=== PATIENT | male | born 1985 | race Caucasian/White ===

== ENCOUNTER 2022-03-16 00:47 | Day surgery (SDC) | payer OTHER, SELFPAY ==
[2022-03-13 13:32] VITALS: BMI 29.0
--- NOTE | 2022-03-13 13:45 | PC.NURSE ---
Report to the Outpatient Waiting Room, entrance under the green pavilion located off [facility], at time 0600_on date 03/16/22. OR Time: __0730. IF YOUR SURGERY TIME IS ADJUSTED WE WILL CALL YOU WED. AFTERNOON 03/15/22 - You and your visitor will be asked a series of questions to screen for COVID 19 for your protection. - Only one visitor is allowed at this time. - The patient visitor is requested to leave or wait in car when not with patient. - A mask is required within the hospital. Patients may have clear liquids (water, carbonated beverages, clear teas, apple juice) until 3 hours prior to surgery with a maximum of 20 ounces. - No food from midnight until time of surgery - Take the following medications with a SIP of water the morning of surgery: _CETIRIZINE Medications to discontinue per physician ALEVE Date to take last dose___03/13/22 Please no make-up, nail paraguayan, hairspray, perfume, deodorant, or body powder the day of surgery. No jewelry (including any body piercings) or valuables the day of surgery, leave them at home. Please take a shower or bath the night before, or the morning of, surgery with an antibacterial soap. Wear comfortable, loose fitting clothing. - Jewelry must be removed prior to entering the operating room. Rings and piercings that are not removed may be cut off. - The hospital will not accept responsibility for valuables. - Please leave all valuables, including medications, at home the day of surgery. If you are going home after surgery, a licensed solo truck driver must drive you home. - NO public transportation without another adult. - We recommend that an adult stay with you for 24 hours following discharge. - We also recommend that you do not drive, make important decision, drink alcoholic beverages, or take any drugs that were not prescribed by your health care provider for at least 24 hours after your discharge time. Follow any additional instructions given to you from your surgeon. If you or anyone in your household have experienced Covid symptoms in the past week, please notify your surgeon or the nurse liaison at the phone number below for possible testing. Telephone instructions given to _AURY_and asked if any additional questions and then verbalized understanding. Patient advised to call surgeon office or pre surgery nurse liaison [phone] if any additional questions.
[2022-03-16] VITALS (10 sets, daily range): BP systolic 114–142; BP diastolic 75–93; PULSE 71–95; RESP 12–16; TEMP 36.4–36.5; O2SAT 97–100
--- NOTE | ~2022-03-16 | XR_ITS ---
EXAMINATION: XR surgery orthopedic DATE: 03/16/2022 10:25 INDICATION: Orthopedic instrumentation removal at the right ankle/lower leg. TECHNIQUE: 8 fluoroscopic images of the 0.6 were obtained during procedure performed by Dr. Turk. Radiologist was not present for the imaging or procedure. The amount of fluoroscopy time used during this procedure was 0.6 minutes. COMPARISON: 02/22/2022 FINDINGS: Previously seen medial plate-screw fixation along the right tibia has been removed with residual luce nt screw tracks along the from the mid tibial diaphysis to the distal metaphysis. On the initial imag es there is a small metallic shaving likely on the order of a couple millimeter in length in the soft tissues medial to the distal tibial metadiaphysis. This appears to have been removed on the subseque nt image. There are at least 3 additional minute metallic densities each appearing significantly less than 1 mm overlying the cephalad-most screw tract. Old healed distal tibial diaphyseal fracture in e ssentially anatomic alignment. Mild tibiotalar osteoarthritis. IMPRESSION: 1. Fluoroscopy utilized for removal of a medial plate and screw fixation spanning a healed distal rig ht tibial diaphyseal fracture. See procedure note for further detail. Reviewed, dictated and finalized at location A. IMPRESSION: 1. Fluoroscopy utilized for removal of a medial plate and screw fixation spanni ng a healed distal right tibial diaphyseal fracture. See procedure note for fur ther detail.
[2022-03-16] MEDS: ACETAMINOPHEN 500 MG TABLET 1000 MG PO (06:34)
[2022-03-16] MEDS: LACTATED RINGERS 1,000 ML 30 ML IV CONT ×2 (07:04→10:22)
--- NOTE | 2022-03-16 07:05 | P.PNAN_ITS ---
Anes - Initial Pre Proc Eval Procedure: Operation Date: 03/16/22 07:30 Proposed Procedures p Removal Hardware Right Leg - Luis Antonio Turk MD Date/Time: 03/16/22 07:05 Surgeon: Luis Antonio Turk MD Pre Op Diagnosis: right ankle painful hardware Patient Data Age: 37 Gender: M Height: 1.85 m Weight: 102 kg Allergies Allergy/AdvReac Type Severity Reaction Status Date / Time No Known Allergies Allergy Verified 03/16/22 06:32 Home Medications Medication Instructions Recorded Confirmed Type cetirizine 10 mg tablet 10 mg PO DAILY PRN 02/22/22 03/16/22 History naproxen sodium 220 mg tablet 220 mg PO Q12H PRN 02/22/22 03/16/22 History Patient hx anesthesia problems: none Family hx anesthesia problems: none Results Review: All pre-operative results and documents have been reviewed as part of the pre-operative evaluation. 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 Informed Consent: The patient's anesthetic plan and its attendant risks and b enefits were discussed with the patient/family/POA. Questions were solicited and answers provided to the satisfaction of the patient/family/POA.
[2022-03-16] MEDS: KETOROLAC 15 MG/ML VIAL (*BKC) IV PUSH (07:06)
--- NOTE | 2022-03-16 07:15 | WPDHPUPDATE1 ---
History and Physical Update Update Date/Time: 03/16/22 07:15 History and Physical has been reviewed, including an updated exam of the patient. There are NO changes in the patient's condition. Risks, benefits, and alternatives have been discussed and questions answered. Patient agrees to proceed with procedure.
[2022-03-16] MEDS: ceFAZolin 2 GM/D5W 50 ML 2 GM/50 ML BAG IVPB (07:30)
[2022-03-16] MEDS: BUPIVACAINE HCL 0.5% PF 30 ML VIAL INFILTRATE (08:02)
--- NOTE | 2022-03-16 10:18 | P.OP_ITS ---
Procedure Note - Detailed Date of Procedure 03/16/22 Pre-op Diagnosis right ankle painful hardware Post-op Diagnosis Other (Right ankle painful hardware, midshaft tibial cyst) Procedure Performed Excision of cyst right tibia with curettage and allograft, removal of hardware right ankle. 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 Internal fixation is become prominent and painful, patient desires removal. Tibia fractures well-healed on radiographs. Degenerative changes of the ankle joint noted which may require further surgical treatment at a later time which would necessitate removal of the hardware. Findings Medial tibial locking plate with screws. Tibial bone cyst midportion with seroma approximately 3 x 3 cm. Description of Procedure Patient identified in the preoperative holding. Informed consent given. Operative extremity marked. Patient received intravenous antibiotics. Patient brought to the operating room where underwent general anesthetic by anesthesia team. Positioned supine on operating room table. Time-out performed confirming the patient, site of the surgery and the plan. Right leg prepped and draped usual sterile surgical fashion using ChloraPrep skin solution. The foot and leg were exsanguinated and thigh tourniquet inflated to 250 mmHg. Previous incisions were utilized. Longitudinal incision made over the medial side of the distal tibia with a 15 blade knife. Hemostasis controlled electrocautery. Fascia incised in line with skin incision. This allowed visualization of the distal portion of the plate and the 4 screws there were removed. More proximal screws were located with image intensification and smaller incisions with 15 blade knife used with blunt dissection down to the screws. The more proximal locking screws were removed. Plate was then elevated from the medial tibia and removed. Bone was debrided with a rongeur and thoroughly irrigated. Incisions closed with 2-0 Vicryl interrupted suture for the fascia 3-0 Monocryl running subcuticular stitch for the skin and closed with glue. At the midportion of the tibia with image intensification a intramedullary cyst was noted. The medial tibial cortex was opened and a large seroma was evacuated. Curette was used to curette degenerative bone from the cyst. This was then thoroughly irrigated. This measured approximately 3 x 3 cm. Allograft bone chips were then packed into the defect. Wound thoroughly irrigated fascia closed with 2-0 Vicryl interrupted suture. Skin repaired with 3-0 Monocryl running subcuticular stitch and glue for the skin. Sterile dressing applied. The patient was then woken from anesthesia, extubated and taken to the recovery room in stable condition. All sponge, needle, instrument counts were correct at the end of the case. Implants Distal tibia medial locking plate removed including locking screws. Estimated Blood Loss -30.0 Tourniquet Time 80 Drains No Packing No Pathology None sent Complications None Condition Stable Disposition PACU
[2022-03-16] MEDS: fentaNYL CITRATE INJ (*CRX) 100 MCG/2 ML VIAL 25 MCG IV PUSH ×2 (10:25→10:28)
[2022-03-16] MEDS: oxyCODONE HCL (*CRX) 5 MG TAB IR PO (11:23)
== END 2022-03-16 12:23 | disposition home or self-care (01) ==
PROVIDERS: Visit Provider Orthopaedic Surgery
PROC: (CPT 27638; principal; 2022-03-16 07:30)
DX: T84.84XA Pain due to internal orthopedic prosthetic devices, implants and grafts, initial encounter (principal); Y83.8 Other surgical procedures as the cause of abnormal reaction of the patient, or of later complication, without mention of misadventure at the time of the procedure; M25.571 Pain in right ankle and joints of right foot; M85.671 Other cyst of bone, right ankle and foot; M06.9 Rheumatoid arthritis, unspecified
CPT/HCPCS: 27638; 20680; A9270; C1713; J0690; J1040; J1100; J1885; J2250; J2405; J2704; J3010; J7120